=== PATIENT | male | born 1970 | race American Indian/Alaskan Native ===

== ENCOUNTER 2022-02-21 12:55 | Emergency (ER) | payer MEDICARE, OTHER ==
[~2022-02-21] VITALS: Ht 172.7 cm; Wt 82.3 kg
[2022-02-21] MEDS ORDERED: XARELTO20 MG PO (13:23)
[2022-02-21] MEDS ORDERED: PAXIL40 MG PO (13:23)
[2022-02-21] MEDS ORDERED: BENZTROPINE MESY1 MG PO (13:24)
[2022-02-21] MEDS ORDERED: NAPROXEN500 MG PO (13:52)
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
== END 2022-02-21 14:26 | disposition home or self-care (01) ==
LOC: ED 12:55
DX: S43.401A Unspecified sprain of right shoulder joint, initial encounter (principal); W19.XXXA Unspecified fall, initial encounter; Y09 Assault by unspecified means; Z79.899 Other long term (current) drug therapy
CPT/HCPCS: 73030; A9270